=== PATIENT | male | born 1970 | race Caucasian/White ===

== ENCOUNTER 2018-02-25 20:45 | Emergency (ER) | payer BC, OTHER ==
[2018-02-25] MEDS ORDERED: IPRATROPIUM BROM 0.5MG/2.5ML ONE (21:24)
[2018-02-25] MEDS ORDERED: ALBUTEROL 2.5 MG/3 ML NEB SOL ONE (21:24)
[2018-02-25] MEDS ORDERED: ONDANSETRON 4 MG/2 ML VIAL ONE (22:30)
[2018-02-25] MEDS ORDERED: NA CHLORIDE 0.9% 1,000 ML ONE (22:30)
[2018-02-26] MEDS ORDERED: DIPHENHYDRAMINE 50 MG/ML VIAL ONE (00:08)
--- NOTE | 2018-02-26 01:09 | ER ---
Nurse's Notes [facility] Name: Sharif Corona Age: 47 yrs Sex: Male : 1970 Arrival Date: 02/25/2018 Time: 20:50 Bed 26 Private MD: Diagnosis: Acute bronchitis;Vomiting;Benign paroxysmal vertigo, unspecified ear Presentation: 02/25 21:00 Presenting complaint: Patient states: Cough for 1 week with nasal congestion and right aj ear congestion. Patient reports dizziness when walking. Transition of care: patient was not received from another setting of care. Onset of symptoms was February 19, 2018. Risk Assessment: Do you want to hurt yourself or someone else? Patient reports no desire to harm self or others. Initial Sepsis Screen: Does the patient meet any 2 criteria? No. Patient's initial sepsis screen is negative. Does the patient have a suspected source of infection? No. Patient's initial sepsis screen is negative. Care prior to arrival: None. 21:00 Method Of Arrival: Ambulatory aj 21:00 Acuity: AGAPITO 4 aj Triage Assessment: 21:02 General: Appears in no apparent distress. comfortable, Behavior is calm, cooperative, aj appropriate for age. Pain: Denies pain. EENT: Reports decreased hearing in right ear nasal congestion nasal discharge. Neuro: Level of Consciousness is awake, alert, obeys commands, Oriented to person, place, time, situation, Appropriate for age. Respiratory: Reports cough that is productive, Onset: The symptoms/episode began/occurred gradually, the patient has mild shortness of breath. Derm: Skin is intact, is healthy with good turgor, Skin is pink, warm \\T\\ dry. normal. Historical: - Allergies: 21:02 No Known Allergies; aj - Home Meds: 21:02 Crestor Oral [Active]; amlodipine 10 mg tab 1 tab once daily [Active]; Bystolic 10 mg aj oral tab 1 tab once daily [Active]; metformin 500 mg Oral tr24 1 tab once daily [Active]; - PMHx: 21:02 Diabetes - NIDDM; Hypertension; Hyperlipidemia; Asthma; aj - PSHx: 21:02 Tonsillectomy; aj - Immunization history:: Adult Immunizations up to date. - Social history:: Smoking status: Patient uses tobacco products, chewing tobacco. - Ebola Screening: : Patient negative for fever greater than or equal to 101.5 degrees Fahrenheit, and additional compatible Ebola Virus Disease symptoms Patient denies exposure to infectious person Patient denies travel to an Ebola-affected area in the 21 days before illness onset No symptoms or risks identified at this time. Screenin:35 Abuse screen: Denies threats or abuse. Denies injuries from another. Nutritional kr2 screening: No deficits noted. Tuberculosis screening: No symptoms or risk factors identified. Fall Risk None identified. Assessment: 21:32 General: Appears in no apparent distress. uncomfortable, well groomed, well developed, kr2 well nourished, Behavior is calm, cooperative, appropriate for age. Pain: Complains of pain in right ear Pain does not radiate. Pain currently is 0 out of 10 on a pain scale. at worst was 6 out of 10 on a pain scale. Quality of pain is described as aching, pressure, Is continuous, Alleviated by nothing. Neuro: Level of Consciousness is awake, alert, obeys commands, Oriented to person, place, time, situation, Appropriate for age. Cardiovascular: Heart tones S1 S2 Capillary refill < 3 seconds in bilateral fingers Patient's skin is warm and dry. Rhythm is regular. Respiratory: Reports cough that is productive, Airway is patent Respiratory effort is even, unlabored, Respiratory pattern is regular, symmetrical, Breath sounds are clear bilaterally. GI: Abdomen is round non-distended, Bowel sounds present X 4 quads. : Denies burning with urination. EENT: Nares are clear bilaterally Oral mucosa is moist. Reports nasal congestion. EENT: Reports pain in right ear. Derm: Skin is intact, is healthy with good turgor, Skin is pink, warm \\T\\ dry. Musculoskeletal: Circulation, motion, and sensation intact. 22:01 Reassessment: Patient appears in no apparent distress at this time. Patient and/or kr2 family updated on plan of care and expected duration. Pain level reassessed. Patient is alert, oriented x 3, equal unlabored respirations, skin warm/dry/pink. Patient denies pain at this time. 22:20 Reassessment: Patient appears in no apparent distress at this time. Patient and/or kr2 family updated on plan of care and expected duration. Pain level reassessed. Patient is alert, oriented x 3, equal unlabored respirations, skin warm/dry/pink. Patient denies pain at this time. 22:30 Reassessment: Patient appears in no apparent distress at this time. Patient and/or kr2 family updated on plan of care and expected duration. Pain level reassessed. Patient is alert, oriented x 3, equal unlabored respirations, skin warm/dry/pink. Patient began coughing forcefully and vomited. States he will start having a "coughing fit and throw up." Dr. Painter notified and in room evaluating patient Patient denies pain at this time. 23:05 Reassessment: Patient appears in no apparent distress at this time. Patient and/or kr2 family updated on plan of care and expected duration. Pain level reassessed. Patient is alert, oriented x 3, equal unlabored respirations, skin warm/dry/pink. Patient complains of feeling dizzy when moving his head certain ways. Dr. Painter notified, orders for Benadryl IVP obtained, see MAR Patient denies pain at this time. Vital Signs: 21:02 BP 167 / 95; Pulse 71; Resp 20; Temp 98.6; Pulse Ox 95% on R/A; Weight 120.2 kg; Height aj 6 ft. 0 in. (182.88 cm); 21:28 BP 141 / 66; Pulse 63; Resp 17; Pulse Ox 99% on R/A; kr2 22:26 BP 164 / 99; Pulse 94; Resp 20; Pulse Ox 98% on R/A; mt 22:45 BP 142 / 86; Pulse 78; Resp 20; Pulse Ox 95% on R/A; kr2 02/26 00:10 BP 162 / 98; Pulse 74; Resp 16; Pulse Ox 96% on R/A; kr2 00:22 BP 156 / 78 Supine; kr2 00:24 BP 161 / 81 Sitting; kr2 00:24 BP 155 / 102 Standing; kr2 02/25 21:02 Body Mass Index 35.94 (120.20 kg, 182.88 cm) aj 00:22 complains of dizziness/vertigo kr2 00:24 Dizziness/vertigo unchanged kr2 00:24 dizziness/vertigo unchanged kr2 ED Course: 02/25 20:50 Patient arrived in ED. al2 21:01 Triage completed. aj 21:02 Arm band placed on left wrist. Patient placed in an exam room. aj 21:05 Wali Painter MD is Attending Physician. gs 21:20 Ella Rosenbaum, SULEMAN is Primary Nurse. kr2 21:35 Patient has correct armband on for positive identification. Bed in low position. Call kr2 light in reach. Side rails up X 1. Adult w/ patient. Pulse ox on. NIBP on. Door closed. Verbal reassurance given. Head of bed elevated. 21:48 Patient moved to radiology via wheelchair. jr1 21:48 X-ray completed. Patient tolerated procedure well. jr1 21:48 Patient moved back from radiology. jr1 21:49 XRAY Chest Pa And Lat (2 Views) In Process Unspecified. EDMS 22:35 Inserted saline lock: 20 gauge in right hand, using aseptic technique. kr2 02/26 01:10 IV discontinued, intact, bleeding controlled, No redness/swelling at site. Pressure mb3 dressing applied. 02:04 No provider procedures requiring assistance completed. mb3 Administered Medications: 02/25 21:27 Drug: Albuterol 2.5 mg Route: Inhalation; kr2 22:02 Follow up: Response: No adverse reaction kr2 21:27 Drug: AtroVENT Aerosol 0.5 mg Route: Inhalation; kr2 22:01 Follow up: Response: No adverse reaction kr2 22:38 Drug: Zofran 4 mg Route: IVP; Site: right hand; kr2 23:00 Follow up: Response: No adverse reaction; Nausea is decreased; Vomiting decreased kr2 22:39 Drug: NS 0.9% 1000 ml Route: IV; Rate: 1 bolus; Site: right hand; kr2 02/26 00:10 Follow up: Response: No adverse reaction; IV Status: Completed infusion kr2 00:10 Drug: Benadryl 25 mg Route: IVP; Site: right hand; kr2 02:05 Follow up: Response: No adverse reaction mb3 Outcome: 01:09 Discharge ordered by . gs 01:10 Discharged to home ambulatory. mb3 01:10 Condition: stable 01:10 Discharge instructions given to patient, Instructed on discharge instructions, follow up and referral plans. medication usage, Demonstrated understanding of instructions, follow-up care, medications, Prescriptions given X 3. 02:05 Patient left the ED. mb3 Signatures: Dispatcher [employer] Julissa Singh RN RN aj Ringgold, Jennifer jr1 Maritza Friedman mt, Gregory, MD MD Ella Rosenbaum RN RN kr2 Celena Canseco Mark RN RN mb3 Corrections: (The following items were deleted from the chart) 02/25 22:47 22:45 Pulse 78bpm; Resp 20bpm; Pulse Ox 95% RA; kr2 kr2
--- NOTE | 2018-02-26 01:09 | EDPHYS ---
Physician Documentation [facility] Name: Sharif Corona Age: 47 yrs Sex: Male : 1970 Arrival Date: 02/25/2018 Time: 20:50 Bed 26 Private MD: ED Physician Wali Painter HPI: 02/26 01:05 This 47 yrs old Male presents to ER via Ambulatory with complaints of gs Productive Cough, Vomiting, Ear Pain, Trouble Walking. 01:05 This 47 yrs old Male presents to ER via Ambulatory with complaints of gs Productive Cough, Vomiting, Ear Pain, Vertigo. 01:05 The patient or guardian reports cough, that is intermittent. Onset: The gs symptoms/episode began/occurred 2 day(s) ago. Severity of symptoms: At their worst the symptoms were moderate, in the emergency department the symptoms are unchanged. Modifying factors: The symptoms are alleviated by nothing, the symptoms are aggravated by nothing. Associated signs and symptoms: Pertinent positives: fever, vomiting, vertigo. The patient has experienced similar episodes in the past, a few times. Historical: - Allergies: 02/25 21:02 No Known Allergies; aj - Home Meds: 21:02 Crestor Oral [Active]; amlodipine 10 mg tab 1 tab once daily [Active]; Bystolic 10 mg aj oral tab 1 tab once daily [Active]; metformin 500 mg Oral tr24 1 tab once daily [Active]; - PMHx: 21:02 Diabetes - NIDDM; Hypertension; Hyperlipidemia; Asthma; aj - PSHx: 21:02 Tonsillectomy; aj - Immunization history:: Adult Immunizations up to date. - Social history:: Smoking status: Patient uses tobacco products, chewing tobacco. - Ebola Screening: : Patient negative for fever greater than or equal to 101.5 degrees Fahrenheit, and additional compatible Ebola Virus Disease symptoms Patient denies exposure to infectious person Patient denies travel to an Ebola-affected area in the 21 days before illness onset No symptoms or risks identified at this time. ROS: 02/26 01:05 All other systems are negative. gs Exam: 01:05 Head/Face: Normocephalic, atraumatic. Eyes: Pupils equal round and reactive to light, gs extra-ocular motions intact. Lids and lashes normal. Conjunctiva and sclera are non-icteric and not injected. Cornea within normal limits. Periorbital areas with no swelling, redness, or edema. ENT: Nares patent. No nasal discharge, no septal abnormalities noted. Tympanic membranes are normal and external auditory canals are clear. Oropharynx with no redness, swelling, or masses, exudates, or evidence of obstruction, uvula midline. Mucous membranes moist. Neck: Trachea midline, no thyromegaly or masses palpated, and no cervical lymphadenopathy. Supple, full range of motion without nuchal rigidity, or vertebral point tenderness. No Meningismus. Chest/axilla: Normal chest wall appearance and motion. Nontender with no deformity. No lesions are appreciated. Cardiovascular: Regular rate and rhythm with a normal S1 and S2. No gallops, murmurs, or rubs. Normal PMI, no JVD. No pulse deficits. Abdomen/GI: Soft, non-tender, with normal bowel sounds. No distension or tympany. No guarding or rebound. No evidence of tenderness throughout. Back: No spinal tenderness. No costovertebral tenderness. Full range of motion. Skin: Warm, dry with normal turgor. Normal color with no rashes, no lesions, and no evidence of cellulitis. MS/ Extremity: Pulses equal, no cyanosis. Neurovascular intact. Full, normal range of motion. 01:05 Constitutional: The patient appears alert, awake. 01:05 Respiratory: the patient does not display signs of respiratory distress, Respirations: normal, Breath sounds: rhonchi, that are moderate, are heard diffusely. 01:05 Neuro: Cranial nerves: grossly normal, CN II- XII are normal as tested, Cerebellar function: normal finger to nose testing. Vital Signs: 02/25 21:02 BP 167 / 95; Pulse 71; Resp 20; Temp 98.6; Pulse Ox 95% on R/A; Weight 120.2 kg; Height aj 6 ft. 0 in. (182.88 cm); 21:28 BP 141 / 66; Pulse 63; Resp 17; Pulse Ox 99% on R/A; kr2 22:26 BP 164 / 99; Pulse 94; Resp 20; Pulse Ox 98% on R/A; mt 22:45 BP 142 / 86; Pulse 78; Resp 20; Pulse Ox 95% on R/A; kr2 02/26 00:10 BP 162 / 98; Pulse 74; Resp 16; Pulse Ox 96% on R/A; kr2 00:22 BP 156 / 78 Supine; kr2 00:24 BP 161 / 81 Sitting; kr2 00:24 BP 155 / 102 Standing; kr2 02/25 21:02 Body Mass Index 35.94 (120.20 kg, 182.88 cm) aj 00:22 complains of dizziness/vertigo kr2 00:24 Dizziness/vertigo unchanged kr2 00:24 dizziness/vertigo unchanged kr2 MDM: 02/25 21:18 Patient medically screened. 02/26 01:05 Differential Diagnosis: Bronchitis Upper Respiratory Infection Pneumonia. Data gs reviewed: vital signs, nurses notes. Response to treatment: the patient's symptoms have markedly improved after treatment, and as a result, I will discharge patient. 02/25 21:19 Order name: XRAY Chest Pa And Lat (2 Views) 02/25 22:25 Order name: IV; Complete Time: 22:37 gs Administered Medications: 02/25 21:27 Drug: Albuterol 2.5 mg Route: Inhalation; kr2 22:02 Follow up: Response: No adverse reaction kr2 21:27 Drug: AtroVENT Aerosol 0.5 mg Route: Inhalation; kr2 22:01 Follow up: Response: No adverse reaction kr2 22:38 Drug: Zofran 4 mg Route: IVP; Site: right hand; kr2 23:00 Follow up: Response: No adverse reaction; Nausea is decreased; Vomiting decreased kr2 22:39 Drug: NS 0.9% 1000 ml Route: IV; Rate: 1 bolus; Site: right hand; kr2 02/26 00:10 Follow up: Response: No adverse reaction; IV Status: Completed infusion kr2 00:10 Drug: Benadryl 25 mg Route: IVP; Site: right hand; kr2 02:05 Follow up: Response: No adverse reaction mb3 Disposition: 02/26/18 01:09 Discharged to Home. Impression: Acute bronchitis, Vomiting, Benign paroxysmal vertigo, unspecified ear. - Condition is Stable. - Discharge Instructions: Acute Bronchitis, Vertigo. - Prescriptions for Prednisone 20 mg Oral Tablet - take 1 tablet by ORAL route once daily for 5 days; 5 tablet. Zofran 4 mg Oral Tablet - take 1 tablet by ORAL route every 12 hours As needed; 6 tablet. Albuterol Sulfate 90 mcg/actuation - inhale 1-2 puff by INHALATION route every 4-6 hours; 1 Inhaler. - Medication Reconciliation Form, Thank You Letter, Antibiotic Education, Prescription Opioid Use form. - Follow up: Private Physician; When: 2 - 3 days; Reason: Re-evaluation by your physician. Signatures: Dispatcher [employer] Julissa Singh RN RN aj Starr, Gregory, MD MD gs Ella Rosenbaum RN RN kr2 Duglas Ron RN RN mb3 Corrections: (The following items were deleted from the chart) 02:05 01:09 02/26/2018 01:09 Discharged to Home. Impression: Acute bronchitis; Vomiting; mb3 Benign paroxysmal vertigo, unspecified ear. Condition is Stable. Forms are Medication Reconciliation Form, Thank You Letter, Antibiotic Education, Prescription Opioid Use. Follow up: Private Physician; When: 2 - 3 days; Reason: Re-evaluation by your physician. gs
[2018-02-26 02:23] VITALS: TEMP 98.6
[2018-02-26 02:27] VITALS: O2SAT 96
[2018-02-26 02:29] VITALS: BP 155/102
--- NOTE | 2018-02-26 08:54 | RAD REPORT ---
EXAM DESCRIPTION: Hilda Arambula (2 Views)02/25/2018 9:51 pm CLINICAL HISTORY: Cough COMPARISON: 2009 FINDINGS: The lungs appear clear of acute infiltrate. The heart is normal size IMPRESSION: No acute abnormalities displayed
== END 2018-02-26 02:05 | disposition home or self-care (01) ==
LOC: ER 20:45
DX: J20.9 Acute bronchitis, unspecified (principal); R11.10 Vomiting, unspecified; H81.10 Benign paroxysmal vertigo, unspecified ear; I10 Essential (primary) hypertension; E11.9 Type 2 diabetes mellitus without complications; E78.5 Hyperlipidemia, unspecified; Z72.0 Tobacco use
CPT/HCPCS: 71046; 96361; 96374; 96375; 99284; J2405; J7030